=== PATIENT | female | born 1975 | race Caucasian/White ===

== ENCOUNTER → 2018-05-15 13:40 | Outpatient (CLI) | payer BC, SELFPAY ==
--- NOTE | 2018-05-15 13:40 | MRI_ITS ---
STUDY: MRI RIGHT ANKLE WITHOUT CONTRAST REASON FOR EXAM: Female, 43 years old. Pain. Sprain. TECHNIQUE: Standardized fat and water weighted pulse sequences were obtained in all 3 orthogonal planes. COMPARISON: None. FINDINGS: Normal subcutis adipose space. There is marrow edema with T2 signal hyperintensity at the neck and anterior talus. Normal posterior tibialis tendon. Normal flexor digitorum longus tendon. Normal flexor hallucis longus tendon. Normal peroneus longus and brevis tendons. Normal tibialis anterior tendon. Normal extensor hallucis longus tendon. Normal extensor digitorum longus tendons. Normal Achilles tendon and teno-osseous insertion. Normal plantar fascia. Normal plantar calcaneal tubercles. Normal intrinsic muscles of the rearfoot. Normal distal tibiofibular syndesmotic ligamentous complex. Normal lateral ligamentous complex. Normal subtalar ligaments and sinus tarsi. Normal deltoid ligamentous complexes. Normal plantar calcaneonavicular (spring) ligament. Normal tibiotalar articulation. Normal talar dome. Normal subtalar articulations. Normal talonavicular articulation. Normal calcaneocuboid articulation. Normal navicular-cuneiform articulations. MRI/Lower Ext Joint Only (Routine) IMPRESSION: Stress injury or bone bruising of the talus. Electronically Signed: Chris Bowen MD at 14:24 EDT , Service support ,
== END ==
PROVIDERS: Family Provider Family Medicine; PCP Family Medicine
DX: M25.571 Pain in right ankle and joints of right foot (principal); S93.491A Sprain of other ligament of right ankle, initial encounter
CPT/HCPCS: 73721

== ENCOUNTER → 2021-05-24 16:46 | Outpatient (CLI) | payer BC, SELFPAY ==
--- NOTE | 2021-05-24 16:55 | RAD_ITS ---
STUDY: X-RAY - RIGHT KNEE REASON FOR EXAM: Female, 46 years old. He pain for one month. No known injury. TECHNIQUE: 3 view(s) of the knee. COMPARISON: None. FINDINGS: Normal visualized distal femur. Normal visualized proximal tibia and fibula. Normal proximal tibiofibular articulation. There is no acute fracture, dislocation or destructive osseous pathology. Normal medial femorotibial compartment. Normal lateral femorotibial compartment. Normal patellofemoral articulation. There is no demonstrated joint effusion. The soft tissue structures are unremarkable. RAD/Knee 3 Views IMPRESSION: Normal x-ray examination of the knee. Electronically Signed: Joshua Nagel DO at 18:57 EDT Tel [phone], Service support ,
== END ==
DX: M25.561 Pain in right knee (principal)
CPT/HCPCS: 73562

== ENCOUNTER → 2022-07-12 | Outpatient (CLI) | payer BC, SELFPAY ==
--- NOTE | 2022-07-12 17:57 | CT_ITS ---
STUDY: CT ABDOMEN AND PELVIS WITH CONTRAST REASON FOR EXAM: Female, 47 years old. Right lower quadrant abdominal pain. RADIATION DOSAGE (If Supplied By Facility): CTDIvol = ( 11.12 ) mGy, DLP = ( 450.80 ) mGycm TECHNIQUE: Transaxial images were obtained from the dome of the diaphragm to the symphysis pubis with oral contrast. 100 mL of ISOVUE-300 was administered. Sagittal and coronal images were reconstructed. Individualized dose optimization techniques were used for this CT. COMPARISON: None. FINDINGS: The visualized lung bases are unremarkable. The visualized portions of the heart are within normal limits. Normal liver. Normal gallbladder and extrahepatic biliary system. Normal spleen. Normal pancreas. Normal bilateral adrenal glands. Portable scarring and decreased size of the right kidney with normal cortical enhancement. There is no mass or renal calculi. No hydronephrosis. Normal left kidney. Normal visualized ureters. Normal visualized stomach. Normal small intestine. Increased colonic feces suggesting constipation. There is no mass or obstruction. The appendix is visualized and appears normal. Normal abdominal aorta. Normal inferior vena cava. Normal retroperitoneum. Normal urinary bladder. Normal uterus and ovaries. There is no pelvic lymphadenopathy. No free air or free fluid is seen within the cavity. Normal abdominal wall. Normal osseous structures. CT/Abdomen/Pelvis WITH Contrast IMPRESSION: 1. Normal appendix. 2. Cortical scarring of the right kidney with no mass. There is no ureteral or urinary bladder abnormality. 3. Question constipation. Electronically Signed: Joshua Nagle DO at 22:09 EDT Reading Location ID and State: [facility] / [place] Tel [phone], Service support ,
== END | disposition home or self-care (01) ==
LOC: CT 17:54
DX: R10.31 Right lower quadrant pain (principal)
CPT/HCPCS: 74177; Q9967

== ENCOUNTER → 2023-05-01 | Outpatient (CLI) | payer BC, SELFPAY ==
--- NOTE | 2023-05-01 15:44 | MRI_ITS ---
PROCEDURE: LUMBAR SPINE MRI WITHOUT CONTRAST COMPARISONS: 09/25/2016; 07/12/2022 CT abdomen/pelvis CLINICAL INDICATION: LUMBAR STENOSIS WITH NEUROGENIC CLAUDICATION TECHNIQUE: Noncontrast lumbosacral spine MRI study was performed multiple sequences in sagittal and axial planes. FINDINGS: Alignment of the lumbosacral spine is normal. Normal vertebral marrow signal. Normal partially visualized sacroiliac joints. The conus medullaris terminates at L1. No abnormal signal within the visualized cord. L1-L2: Normal disc height and morphology. Normal spinal canal and neuroforamina. L2-L3: Normal disc height and morphology. Normal spinal canal and neuroforamina. L3-L4: Disc bulge with crowding of both traversing L4 nerve roots in both lateral recesses. Normal spinal canal and neuroforamina. L4-L5: Disc bulge with spinal canal stenosis and impingement on the left more than right traversing L5 nerve roots in the lateral recesses. Mild bilateral neural foraminal stenosis. L5-S1: Disc bulge. Mild bilateral neural foraminal stenosis. Mild paraspinous muscle fatty infiltration. MRI/Spine Lumbar (Routine) IMPRESSION: 1. Disc bulge with impingement on the left more than right traversing L5 nerve roots in the lateral recesses at L4-5. 2. Other medical lower lumbar spine degenerative change detailed above, including paraspinous muscle fatty infiltration. Electronically Signed: Daniel Jaramillo MD at 19:21 EDT ,
--- NOTE | 2023-05-01 16:44 | RAD_ITS ---
INDICATION: STENOSIS WITH CLAUDICATION EXAMINATION/TECHNIQUE: X-RAY - XR Spine Lumbar Min 4 Views COMPARISON: CT abdomen and pelvis 07/12/2022 FINDINGS: VERTEBRAE: Preserved vertebral body height. No fracture. No spondylolisthesis. Preservation of the normal lumbar lordosis. No evidence of instability with flexion and extension lateral views. DISCS: Stable degenerative disc space narrowing at L4-5 and L5-S1. INCLUDED ABDOMEN: Included bowel gas pattern is non-obstructive. RAD/L/S Spine Min 4 Views IMPRESSION: Stable degenerative disc disease lower lumbar spine. Electronically Signed: Stephane Carmona MD at 0:24 EDT ,
== END | disposition home or self-care (01) ==
PROVIDERS: Referring Provider Neurological Surgery; Visit Provider Neurological Surgery
DX: M48.062 Spinal stenosis, lumbar region with neurogenic claudication (principal)
CPT/HCPCS: 72110; 72148

== ENCOUNTER → 2024-07-01 | Outpatient (CLI) | payer BC, SELFPAY ==
--- NOTE | 2024-07-01 14:31 | BI_ITS ---
MAMMOGRAPHY - UNILATERAL DIAGNOSTIC: RIGHT BREAST REASON FOR EXAM: Female, 49 years old. Abnormal screening mammogram. PERTINENT HISTORY: Non-contributory. TECHNIQUE: Compression magnification views of the right breast were obtained. CAD: Full Field Digital Mammography with Computer Added Detection was performed. COMPARISON: Comparison is made with prior outside examination dated June 28, 2024. FINDINGS: Breast Composition: The breasts are heterogeneously dense, which may obscure small masses. Persistent cluster of microcalcification in the upper central aspect of the right breast. Biopsy recommended. No other significant abnormalities are identified. BI/DIAG MAMM W/CAD, UNILAT IMPRESSION: Persistent cluster microcalcification in the upper central aspect of the right breast. Biopsy recommended. ASSESSMENT CATEGORY: BIRADS Category 4: Suspicious - Biopsy Should Be Considered. A letter regarding these results will be sent to the patient by the facility within 30 days. Approximately 10% of breast cancers are not detected by mammography. A normal mammogram should not delay biopsy of a clinically suspicious abnormality. Electronically Signed: Alo Barnes MD at 8:55 EDT ,
== END | disposition home or self-care (01) ==
LOC: OPBI 14:30
PROVIDERS: Visit Provider Nurse Practitioner Family
DX: R92.0 Mammographic microcalcification found on diagnostic imaging of breast (principal)
CPT/HCPCS: 77065

== ENCOUNTER → 2024-07-15 | Outpatient (CLI) | payer BC, SELFPAY ==
--- NOTE | 2024-07-15 | IMM_PTH ---
PATIENT: FERNY ARANA LOC: [facility] U#:[id number] AGE/SX: 49/F ROOM: RE07/15/[address]: Dr. Manpreet Ye MD : 1975 BED: DIS: 07/15/2024 SPEC #: [id number] RECD: 07/16/24 10:25 STATUS: RAKESH REQ #: [id number] DANE: 07/15/24 00:[address]: Manpreet Ye DEPT: IMMUNOHISTOCHEMISTRY RECD BY: Kam Ch ENTERED: 07/16/24 10:26 SP TYPE: IMMUNO OTHR DR: CRIS JENNINGS, SALES PROPERTY MANAGER-C Jessica Olvera PA-C Tissues: Right breast, NOS Procedures: CALPONIN-1 (add) CK5-6 (add) CK8 (add) E-CAD (add) HER2 KRYSTAL (add) KI-67 (add) P53 (add) AZ (add) P40 (add) ER (initial) PHYSIC[facility] INSTIT[facility] [address] [address] SPECIMEN INFORMATION: Tissue Source: Right breast tissue Clinical Info: Right breast outer quadrant microcalcifications Specimen Number: [id number] CPT code: 70823,[id number] METHODOLOGY: Deparaffinized sections of prefer/formalin-fixed tissue or PAP/DQ stained slides are incubated with monoclonal/polyclonal antibodies/oligonucleotide probes. Localization is made via biotin free immunoperoxidase method. Appropriate controls are performed and reacted as expected. Results on target cell population are indicated in the following table: RESULTS: ANTIBODY / CLONE RESULT Block 1 P53 (DO-7) positive, wild type Ki-67 (30-9) positive, 15% CK8 (51onirD78) positive CK5-6 (D5 & 1684) positive, basal layer Calponin-1 (AP006U) positive P40 (BC28) positive E-Cad (ECH-6) positive MORPHOMETRIC ANALYSIS ER (clone 6F11) >95%, strong intensity AZ (clone 16/1E2) >95%, strong intensity Her-2Neu (clone CB11) 2-3+ The prognostic test for HER2 is performed on formalin-fixed paraffin embedded tissue. A 3+ (positive) staining pattern is defined as intense, homogeneous, complete, circumferential membranous staining in >10% of contiguous tumor cells. A similar weak (2+) staining pattern is interpreted as equivocal. SEVEN follow-up testing is recommended for all equivocal cases. Positivity/negativity for ER/AZ is reported if > or < 1% of the tumor cells are immuno- reactive, respectively. The ASCO/CAP criteria is used for scoring. Reference: Journal of Clinical Oncology, 2013; 31:6715-3151 & 2010; 16:5421-1488. Ischemic time: Less than one hour. Duration of fixation: 8 Hrs; Sample Adequate: Yes. These assays have not been validated on decalcified tissues. Results should be interpreted with caution given the likelihood of false negativity on decalcified specimens or fixation greater than 72 hours. Alternative testing methods (FISH/dualISH for Her2; gene expression for ER) are recommended, if applicable. Please notify the laboratory if additional testing is required. These tests were developed and their performance characteristics determined by [facility]. They may not have been cleared or approved by the U.S. Food and Drug Administration. The FDA has determined that such clearance or approval is not necessary. The above immunohistochemical/dualISH markers are ordered and reviewed by the Pathologist. 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 Positive for estrogen receptors (favorable prognostic indicator). Positive for progesterone receptors (favorable prognostic indicator). Positive for overexpression of GXE4ckg. AM/mr 07/19/2024
--- NOTE | 2024-07-15 11:30 | BRBX_PTH ---
PATIENT: FERNY ARANA LOC: [facility] U#:[id number] AGE/SX: 49/F ROOM: RE07/15/[address]: Dr. Manpreet Ye MD : 1975 BED: DIS: 07/15/2024 SPEC #: [id number] RECD: 07/15/24 12:19 STATUS: RAKESH REJulio Cesar #: [id number] DANE: 07/15/24 11:[address]: Manpreet Ye DEPT: SURGICAL PATHOLOGY RECD BY: Ryan Singh ENTERED: 07/15/24 13:50 SP TYPE: BREAST BX OTHR DR: CRIS JENNINGS, MARIEC Jessica Olvera PA-C Tissues: Right breast, NOS Procedures: Surgery Specimen Level IV HEADER OPERATION: Right stereotactic breast biopsy PRE-OP DIAGNOSIS: Right breast upper outer quadrant microcalcifications TISSUE SUBMITTED: Right breast core tissue Ischemic Time: 1 minute Fixation Time: 8 hours MICROSCOPIC DIAGNOSIS Right breast, upper outer quadrant, core biopsy: Ductal carcinoma in situ. See Comment. 07/16/2024 COMMENT IN SITU CANCER SUMMARY: Ductal Carcinoma Insitu: Architectural Pattern: Solid Nuclear Grade: 3/3 Comdeo necrosis: Present Angiolymphatic Invasion:Not identified Microcalcifications: Present Greatest length: 5.5mm The above summary is in compliance with [employer] [place] (CAP) Cancer Protocols Checklist and [place] Joint Committee on Cancer (AJCC), Staging Manual, 8th Ed. Immunohistochemistry ([id number]) supports the above diagnosis. Case has been reviewed in consultation with Dr. Solorzano who concurs with the above diagnosis. IDC:[id number] MICROSCOPIC DESCRIPTION Slides are reviewed. GROSS DESCRIPTION Received is one container labeled with the patient's name and not further designated. The specimen consists of multiple elongated fragments of moreno-yellow fibroadipose tissue that in aggregate measure 5.0 x 3.0 x 0.3 cm. The specimen is totally submitted in two cassettes. 07/15/2024 TC:0 CPT:25259
--- NOTE | 2024-07-15 11:49 | OP.PCM_ITS ---
Problems Associated Problem List Diagnoses (1) Abnormal mammogram of right breast: Report of Operation Date of Procedure: 07/15/24 Pre-Operative Diagnosis: Abnormal right breast mammogram/microcalcifications Post-Operative Diagnosis: Abnormal right breast mammogram/microcalcifications Surgery/Procedure Performed:: Stereotactic guided right breast core needle biopsy Surgeon: Manpreet Ye Type of Anesthesia: Local Specimen's removed: Right breast tissue containing microcalcifications Drains: None Estimated Blood Loss (mL): 3 mL Description of Procedure: The patient is a 49-year-old female who recently underwent screening mammography showing a new area of microcalcification in the right breast. Biopsy was recommended via a stereotactic biopsy. We discussed the details of the planned procedure including the risks benefits and alternatives. She wished to proceed. This was scheduled in a timely manner. She was brought to the women's breast imaging facility and patient was appropriately identified. The patient was then placed in a prone position on the stereotactic biopsy table. The right breast was suspended through the aperture and the table. The right breast was then placed into compression and pipeline maintenance supervisor views were obtained until the area of microcalcifications were clearly identified. Once these were appropriately identified, 2 stereotactic views were then obtained. Using these images, the lesion was targeted. Once this was performed the skin of the breast was prepped and draped in the usual sterile manner using Betadine. Local anesthetic was then injected into the vicinity. After local anesthetic was injected, an #11 blade was then used to make a 2 to 3 mm skin incision through which the biopsy probe was inserted and advanced to the desired depth. Next, the biopsy probe was fired and this was followed by another series of images to confirm appropriate placement in relation to the calcifications. This was clearly the case. Numerous suction biopsies were then obtained mostly from the 10 to 1 o'clock positions. Patient tolerated this well but we did inject some additional local anesthetic. The specimen tissue was then retrieved and a specimen radiograph was then performed. These images clearly showed many microcalcifications noted in several samples confirming accurate biopsying of the lesion in question. The biopsy site was then lavaged. A marking clip was then deployed. A post clip placement image was then obtai josi and clearly showed the marking clip in the appropriate position in relation to the biopsy cavity. The patient was then taken out of compression and manual pressure was then held for period of time on the area to minimize bruising and improve hemostasis. Overall hemostasis was excellent and only minimal blood loss was noted. The patient was then sat upright and then nursing staff was able to apply Steri-Strip dressing. She tolerated this procedure well. All questions and concerns were addressed following the procedure. An appointment was made for her to follow-up sometime next week in the office to discuss the final pathology results. Complications None Procedures Radiology Radiology US Procedures: Other Procedure See Report (Stereotactic guided right breast core needle biopsy)
== END | disposition home or self-care (01) ==
PROVIDERS: PCP Nurse Practitioner Family; Referring Provider Physician Assistant; Visit Provider Surgery
DX: D05.11 Intraductal carcinoma in situ of right breast (principal)
CPT/HCPCS: 19081; 88305; 88341; 88342; J7050; A4648

== ENCOUNTER 2024-07-26 11:20 | Day surgery (SDC) | payer BC, SELFPAY ==
[2024-07-26] VITALS (9 sets, daily range): BP systolic 117–132; BP diastolic 66–97; PULSE 44–70; RESP 12–18; TEMP 36.1–36.6; O2SAT 97–100; BMI 25.8
--- NOTE | 2024-07-26 11:10 | BI_ITS ---
SURGICAL BREAST SPECIMEN RADIOGRAPH CLINICAL: Document presence of tissue clip marker in biopsy specimen. FINDINGS: Specimen shows presence of tissue clip marker. Electronically Signed: Alo Barnes MD at 14:45 EDT , BI/Breast Biopsy Specimen IMPRESSION: undefined
[2024-07-26] MEDS: Lactated Ringers 1,000 ML 15 ML IV (11:30)
[2024-07-26 12:56] LABS: Internal QC Validated? YES +Cl - CLEAR BKGD; Pregnancy, Serum, hCG Quali. NEGATIVE Negative
--- NOTE | 2024-07-26 13:00 | BRBX_PTH ---
PATIENT: FERNY ARANA LOC: [facility] – [place] U#:[id number] AGE/SX: 49/F ROOM: RE07/26/[address]: Dr. Manpreet Ye MD : 1975 BED: DIS: 07/26/2024 SPEC #: [id number] RECD: 07/26/24 14:39 STATUS: RAKESH REJulio Cesar #: [id number] DANE: 07/26/24 13:[address]: Manpreet Ye DEPT: SURGICAL PATHOLOGY RECD BY: Ryan Singh ENTERED: 07/27/24 09:25 SP TYPE: BREAST BX OTHR DR: CLARE SPENCER Tissues: A - Right breast, NOS B - Right breast, NOS C - Right breast, NOS Procedures: Surgery Specimen Level IV HEADER OPERATION: Breast, lumpectomy with right stereo wire localization PRE-OP DIAGNOSIS: Neoplasm of right breast, primary tumor staging category Tis: Ductal carcinoma in situ DCIS TISSUE SUBMITTED: A- Right breast *long stitch- lateral, short stitch- superior*, B- Right breast: Additional inferior margin, C- Right breast: New additional lateral margin Ischemic Time: 9 minute Fixation Time: 29.5 hours MICROSCOPIC DIAGNOSIS A. Right breast, lumpectomy with needle localization: Negative for carcinoma. Changes consistent with previous biopsy site. B. Right breast, additional inferior margin: Focal ductal carcinoma in situ. See cancer summary in the comment section. C. Right breast, new additional lateral margin: Fatty benign breast tissue, negative for carcinoma. SJ. 07/29/2024 COMMENT B. BREAST CANCER SUMMARY (DCIS): Procedure - excision, lumpectomy with needle localization including additional inferior and lateral margins Specimen laterality - Right Tumor: Tumor site - Upper outer quadrant as per clinical information. Size (extent) of DCIS - 0.3 x 0.1cm Number of blocks with DCIS - 1 Number of blocks examined - 25 (specimen A, B &C) Architectural pattern - Comedo and solid Nuclear grade - grade 3 (high) Necrosis - present, central (expansive comedo necrosis) Margins: Margins are free of tumor. Presumed new margin is 0.5cm away from the tumor Regional lymph nodes: No lymph nodes are submitted or found Distal metastases- Not applicable Treatment effect - no known presurgical therapy. Additional Pathologic Findings - - Fibrocystic changes and intraductal hyperplasia without atypia - changes consistent with previous biopsy site. Ancillary Studies: Previously performed on same tumor ([id number] / [id number]) ER: positive (>95%, strong intensity) UT: positive (>95%, strong intensity) Bzi2ako: 2-3+ Microcalcifications - Present in DCIS Clinical History - Please make reference to previous specimen [id number] right breast, upper outer quadrant core biopsy with diagnosis of ductal carcinoma in situ. Radiologic findings- upper outer quadrant microcalcifications. PATHOLOGIC STAGE: pTis(DCIS) pNx pMx The above summary is in compliance with [employer] [place] [employer] (CAP) Cancer Protocols Checklist and [place] Joint Committee on Cancer (AJCC), Staging Manual, 8th Ed. MICROSCOPIC DESCRIPTION Slides are reviewed. GROSS DESCRIPTION A. Received fresh and post fixed in formalin is one container labeled with the patient's name and designated Right breast lumpectomy. The specimen consists of a piece of fibroadipose tissue with needle localization measuring 8.0 x 6.0 x 3.0cm. A piece of skin is also noted anteriorly measuring 2.5 x 0.6cm. The skin surface is unremarkable. The specimen is inked as follows: anterior - yellow, posterior - black, superior - blue, inferior - green, medial - red and lateral - orange. The specimen is partly disrupted. Serial sections reveal mostly adipose cut surfaces with scant fibrous areas. A focal hemorrhagic area close to the inferior margin is noted consistent with previous biopsy site. No obvious mass lesions are identified. This area measures 1.5cm in greatest dimension. Program Management Specialist sections are submitted in eleven cassettes as follows: 1-perpendicular anterior margin, skin and posterior margin, 2- perpendicular medial, lateral and superior margins, 3-11- biopsy cavity with adjacent area and including closest inferior margin. Sections area submitted after additional fixation. 07/27/2024 B. Received in fixative is one container labeled with the patient's name and designated Right breast, additional inferior margin. The specimen consists of an unoriented piece of fibroadipose tissue measuring 4.0 x 3.5 x 1.5cm. One surface is ragged and presumed to be old margin and the opposite surface is smooth. Presumed new margin is inked black and presumed old margin is inked blue. Sections reveal focal hemorrhagic cut surfaces. No obvious mass lesion is identified. The entire specimen is submitted in eight cassettes from one end to another end. Sections are submitted after additional fixation. 07/27/2024 C. Received in fixative is one container labeled with the patient's name and designated Right breast, new additional lateral margin. The specimen consists of an unoriented piece of fibroadipose tissue measuring 5.0 x 3.0 x 1.1cm. One surface shows focal area of hemorrhage presumed to be old margin and inked blue. Presumed new margin is inked black. Sections reveal yellow adipose cut surfaces with scant fibrous areas. Program Management Specialist sections are submitted in six cassettes. Sections will be submitted after additional fixation. 07/27/2024 TC:0 CPT:43409,24698w4
--- NOTE | 2024-07-26 13:21 | PCM.PRE.AN2 ---
ASA Classification* ASA Classification ASA Classification: 2 Assessment & Plan Anesthesia* Anesthesia Assessment Anesthesia Assessment: Discussed sedation and/or anesthesia options, risks, benefits, and alternatives with patient/parents/legal guardian/POA. Questions invited. The patient/parents/legal guardian/POA seems to understand and agrees to proceed with anesthesia plan. Reviewed the physical assessment, medical history, allergy history and patient home medications list prior to surgery/procedure/anesthetic and documented any changes. Performed airway and anesthesia risk assessments. 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 When Was Last Pacemaker Check QUESTION #4 FULL TEXT: You/Your Family Experience fever (hyperthermia) with Anesthesia Last Oral Intake Last Oral intake: Last Oral Intake NPO since 07:45 07/26/24 11:50 Meds taken in AM with sips of Yes 07/26/24 11:50 water? Meds patient instructed to take am of surgery Any additional information?: Yes NPO since: 07:45 (Patient took metoprolol at 745 today.) Meds taken in AM with sips of water?: Yes PONV PONV - receiving tank operator: PONV - receiving tank operator Female Yes 07/21/24 15:50 HX of Motion Sickness Yes 07/21/24 15:50 HX of N/V After Surgery Yes 07/21/24 15:50 Non-Smoker Yes 07/21/24 15:50 Duration of Surgery greater Yes 07/21/24 15:50 than 60 minutes Number of Risk Factors 5 07/21/24 15:50 PONV Score Severe Risk 07/21/24 15:50 Height & Weight Height & Weight: Anesthesia: Height & Weight Height 5 ft 8 in 07/26/24 11:50 Weight: 77 kg 07/26/24 11:50 Body Mass Index (BMI) 25.8 07/26/24 11:50 Respiratory Assessment Respiratory Assessment - receiving tank operator: Respiratory Tract Infection Hx - receiving tank operator Hx Respiratory Tract Infection No 07/21/24 15:50 STOP Sleep Apnea STOP Sleep Apnea - receiving tank operator: STOP Sleep Apnea - receiving tank operator Hx Hypertension No 07/21/24 15:50 Hx Sleep Apnea No 07/21/24 15:50 CPAP BIPAP Do you snore loudly (louder No 07/21/24 15:50 than talking or can be heard Do you often feel tired/ No 07/21/24 15:50 fatigued/ sleepy during daytime? Has anyone observed you stop No 07/21/24 15:50 breathing during sleep? STOP Results Negative 07/21/24 15:50 QUESTION #5 FULL TEXT : Do you snore loudly (louder than talking or can be heard through closed doors)? 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 Specify any problems Hx of Preganancy in last 3 No 07/21/24 15:50 Months Nurse Filling Out Transfusion VCHRISTIN 07/21/24 15:50 & Questions: Date: 07/21/24 07/21/24 15:50 Time: 15:52 07/21/24 15:50 Patient unable to answer at this time (ie. confused, unrespo /Reproduction History /Reproductive History - receiving tank operator: /Reproductive Hx- receiving tank operator Hx Now No 07/21/24 15:50 Gestational Age (in weeks): EDC: Hx Hx Para Hx Section SAB No 07/21/24 15:50 Active Medications Active Medications: Current Medications Generic Name Dose Route Start Last Admin Trade Name Freq PRN Reason Stop Dose Admin Lactated Ringer's 1,000 mls @ 15 mls/hr 07/26/24 11:30 07/26/24 11:30 IV 15 mls/hr .Q48H ANSELMO Administration PFSH Medical History Wears glasses Arthritis Injury of back Back pain Dietary restriction Gastric reflux Non-smoker History of echocardiogram Cardiology follow-up encounter History of irregular heartbeat Neoplasm of right breast, 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) Abnormal mammogram of right breast Home Medications ?Medication ?Instructions ?Recorded ?Last Taken ?Type metoprolol succinate 25 mg 25 mg PO QDAY 07/09/24 07/26/24 07:45 History tablet,extended release 24 hr omeprazole 20 mg capsule,delayed 20 mg PO QDAY 07/09/24 Unknown History release calcium carbonate 600 mg-vitamin 1 tab PO DAILY 07/21/24 Unknown History D3 5 mcg (200 unit) tablet (Calcium 600 + D(3)) multivitamin (Daily Multi-Vitamin 1 tab PO DAILY 07/21/24 Unknown History tablet) Allergy/AdvReac Type Severity Reaction Status Date / Time latex Allergy Mild Rash Verified 07/26/24 11:50 aspirin Allergy Rash Verified 07/26/24 11:50 Surgical History Hx of left knee surgery S/P breast biopsy, right H/O section Social History Smoking Status: Never smoker alcohol intake: never substance use type: does not use Review of Systems (Anesthesia) ROS Narrative System reviewed and no additional complaints, except as documented.
--- NOTE | 2024-07-26 13:32 | PCM.HP.STD ---
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) Abnormal mammogram of right breast Home Medications ?Medication ?Instructions ?Recorded ?Last Taken ?Type metoprolol succinate 25 mg 25 mg PO QDAY 07/09/24 07/26/24 07:45 History tablet,extended release 24 hr omeprazole 20 mg capsule,delayed 20 mg PO QDAY 07/09/24 Unknown History release calcium carbonate 600 mg-vitamin 1 tab PO DAILY 07/21/24 Unknown History D3 5 mcg (200 unit) tablet (Calcium 600 + D(3)) multivitamin (Daily Multi-Vitamin 1 tab PO DAILY 07/21/24 Unknown History tablet) Allergy/AdvReac Type Severity Reaction Status Date / Time latex Allergy Mild Rash Verified 07/26/24 11:50 aspirin Allergy Rash Verified 07/26/24 11:50 Surgical History Hx of left knee surgery S/P breast biopsy, right H/O section Social History Smoking Status: Never smoker alcohol intake: never substance use type: does not use Vital Signs Vital Signs Vital Signs: 07/26/24 11:50 07/26/24 11:50 07/26/24 13:29 Temperature 97.6 F L 97.6 F L Temperature Source Temporal Pulse Rate 59 L 59 L Respiratory Rate 16 16 Respiratory Pattern Normal Blood Pressure 132/91 H 132/91 H Blood Pressure Mean 104 Blood Pressure Source Monitor Blood Pressure Position Semi-Fowlers Blood Pressure Location Right Arm Pulse Ox 100 100 Oxygen Delivery Method Room Air Room Air Weight Weight: 169 lb 12.095 oz Body Mass Index (BMI) 25.8 Physical Exam Const alert, oriented x3 and no apparent distress General Appearance: cooperative and comfortable HEENT normocephalic Head and Scalp: normal to inspection Eyes PERRL Results Lab / Micro Data Labs: Laboratory Results - last 24 hr 07/26/24 12:10: Serum , Qual NEGATIVE Assessment & Plan Assessment/Plan (1) Neoplasm of right breast, 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
[2024-07-26] MEDS: Bupivacaine Mpf 0.5% 30 ML VIAL (13:56)
--- NOTE | 2024-07-26 15:18 | PCM.POST.ANE ---
Anesthesia: Postop Eval I Current Vital Signs Temperature: 97.7 F Pulse Rate: 66 Blood Pressure: 125/97 Respiratory Rate: 14 Pulse Ox: 97 Oxygen Delivery Method: Room Air Assessment Airway patent: Yes Spontaneous unlabored respirations: Yes Mental status: Awake and Calm nausea: No Vomiting: No Anesthesia Complication: No Fluid Hydration Crystalloid volume administer (ml): 900 Total IV fluid infused: 900 Progress Note Anesthesia document: Postop Eval 1 completed: Yes
--- NOTE | 2024-07-26 15:20 | DCINST_ITS ---
Discharge Instructions Diet Discharge Diet: Light diet - advance as tolerated Activity Discharge Activity: Return to Normal Activity Ice area for (Minutes): 30 Dressing / Incision Call your doctor if your incision/area has: Continuous Slow Oozing, Sudden Increased Bleeding, Increased Pain/ Swelling, Increased Redness, Foul Smelling Discharge and Swelling at the incision site Call your doctor if you observe: Fever of 101 or Higher Remove Dressing in: 1 day (remove kaity before 1st shower; skin glue will come off in 2 weeks ) Cleanse incision/area with: Soap & Water Follow Up Care Please Follow Up With: Manpreet Ye MD When: 1-2 weeks Test Results: Test results from this visit will be discussed in further detail at your follow- up appointment, if applicable. Pending Tests Upon Discharge: pathology Discharge Plan Admission Attending Provider: Manpreet Ye Primary Care Provider: CRIS JENNINGS Instructions Print Language: Albanian Discharge Orders/Prescriptions Prescriptions: New oxycodone-acetaminophen [Percocet] 5-325 mg tablet 1 tab PO Q8H PRN (Reason: pain) 5 Days Qty: 10 0RF Continued metoprolol succinate 25 mg tablet extended release 24 hr 25 mg PO QDAY omeprazole 20 mg capsule,delayed release(DR/EC) 20 mg PO QDAY multivitamin [Daily Multi-Vitamin] Tablet 1 tab PO DAILY calcium carbonate-vitamin D3 [Calcium 600 + D(3)] 600 mg-5 mcg (200 unit) tablet 1 tab PO DAILY Referrals / Follow Up: CRIS JENNINGS, BOARD OF EDUCATION SECRETARY-C [Primary Care Provider] - Disposition Disposition (needs filled in before D/C Order can be placed): Home, Self Care
--- NOTE | 2024-07-26 15:26 | OP.PCM_ITS ---
Report of Operation Date of Procedure: 07/26/24 Pre-Operative Diagnosis: Right breast DCIS Post-Operative Diagnosis: Right breast DCIS Surgery/Procedure Performed:: 1. Right breast wire localized partial mastectomy/lumpectomy 2. stereotactically placed wire for localization Surgeon: Manpreet Ye audiovisual aids technician: CARLOS PAULcase operator Type of Anesthesia: General Anesthesiologist: Michael Naidu Specimen's removed: 1. Right breast lumpectomy/partial mastectomy tissue 2. Additional inferior margin 3. Additional lateral margin Drains: None Estimated Blood Loss (mL): 20 mL Description of Procedure: The patient is a 49-year-old female who was recently diagnosed with right breast DCIS after having undergone screening mammography. There was an area of calcifications in the upper outer quadrant of the right breast. A stereotactic biopsy was performed and revealed DCIS. This was discussed in the office and we offered her wire localized lumpectomy and explained that she would likely need radiation therapy as well. We discussed the details of the planned procedure including risks benefits and alternatives. She wished to proceed. Surgery was scheduled in a timely manner. Once patient was admitted preoperatively, she was taken to breast imaging department for localization wire insertion. This was performed stereotactically with the patient in a prone position. The right breast was placed in CC compression. Images were obtained. Once the lesion was noted a stereotactic views were then obtained and this was used to target upon the abnormality. The area was prepped and draped in the usual manner. Local anesthetic was infiltrated. A hookwire was then inserted without difficulty. The needle was removed and the wire was clipped. Postprocedure mammogram showed the wire to be in appropriate position for surgery. Patient was then brought to the operating room again under informed consent. She was placed supine on the operative table with arms outstretched on arm boards. General LMA anesthesia was induced by the anesthesia department. Her arms were outstretched on arm boards. The right breast chest and axilla were prepped in the usual sterile manner. The area was draped in the usual standard manner as well. An ellipse incision was made around the entry point of the guidewire. Bovie electrocautery was then used to dissect down through the subcutaneous tissues parallel to the direction of the wire. Once dissection was carried beyond the tip of the wire the specimen was excised and was then sent to radiology to have a specimen radiograph performed. This clearly showed the wire as well as the clip. It appeared that the clip may be towards the edge of the specimen. To ensure negative margins, I excised additional tissue inferiorly as well as laterally as I felt this was most likely the area that might be close and margin. Hemostasis was excellent. The wound was copiously irrigated. The specimen was oriented with marking sutures. A long stitch kerns the lateral aspect of the specimen. A short stitch kerns the superior aspect of the specimen. The wound was then closed with 3-0 Vicryl and then 5-0 Vicryl. Skin glue was applied as dressing along with 4 x 4 gauze and tape. She was awakened by anesthesia and taken the PACU in good condition. Grafts/Implants Used: None Complications None Admit VTE Documentation VTE Present on Admission: No VTE Mechan Device Prophylaxis: SCD's VTE Pharm Prophylaxis ordered?: No Reason prophylaxis not ordered:: Treatment Not Indicated Procedures Hospitalists Procedures: Other Procedure - See Report ([id number] & [id number]) Procedures Integumentary [id number]-[id number]: 30404 Partial mastectomy Multi Select Codes Integumentary Integumentary CPT Codes: 44213 Perq dev breast 1st [place]ct[place] [address] Partial mastectomy
--- NOTE | 2024-07-26 16:08 | POSTOPAN2_ITS ---
Anesthesia Postop Eval I Sum Postop Eval Completion status Anesthesia document: Postop Eval 1 completed: Yes Anesthesia Postop Eval I Summary Anesthesia Postop Eval I Summary: Anesthesia Postop Eval I: Assessment Summary Airway patent Yes 07/26/24 15:18 NUCLEAR MEDICAL TECH.MDOT Spontaneous unlabored Yes 07/26/24 15:18 NUCLEAR MEDICAL TECH.MDOT respirations Mental status Awake,Calm 07/26/24 15:18 NUCLEAR MEDICAL TECH.MDOT nausea No 07/26/24 15:18 NUCLEAR MEDICAL TECH.MDOT Vomiting No 07/26/24 15:18 NUCLEAR MEDICAL TECH.MDOT Anesthesia Postop Eval I: Fluid Summary Crystalloid volume administer 900 07/26/24 15:18 NUCLEAR MEDICAL TECH.MDOT (ml) Colloids volume administered ( ml) Blood Product volume administered (ml) Total IV fluid infused 900 07/26/24 15:18 NUCLEAR MEDICAL TECH.MDOT Anesthesia Postop Eval I: Summary Notes Anesthesia Complication No 07/26/24 15:18 NUCLEAR MEDICAL TECH.MDOT Anesthesia Complication Comment: Post-operative progress note Anesthesia: Postop Eval II Evaluation Mental status: Awake and Calm Pain Level: 1 nausea: No Vomiting: No Complications Anesthesia Complication: No
--- NOTE | 2024-07-26 16:08 | PCM.POSTANE2 ---
Anesthesia Postop Eval I Sum Postop Eval Completion status Anesthesia document: Postop Eval 1 completed: Yes Anesthesia Postop Eval I Summary Anesthesia Postop Eval I Summary: Anesthesia Postop Eval I: Assessment Summary Airway patent Yes 07/26/24 15:18 EMBROIDERY ASSISTANT.MDOT Spontaneous unlabored Yes 07/26/24 15:18 EMBROIDERY ASSISTANT.MDOT respirations Mental status Awake,Calm 07/26/24 15:18 EMBROIDERY ASSISTANT.MDOT nausea No 07/26/24 15:18 EMBROIDERY ASSISTANT.MDOT Vomiting No 07/26/24 15:18 EMBROIDERY ASSISTANT.MDOT Anesthesia Postop Eval I: Fluid Summary Crystalloid volume administer 900 07/26/24 15:18 EMBROIDERY ASSISTANT.MDOT (ml) Colloids volume administered ( ml) Blood Product volume administered (ml) Total IV fluid infused 900 07/26/24 15:18 EMBROIDERY ASSISTANT.MDOT Anesthesia Postop Eval I: Summary Notes Anesthesia Complication No 07/26/24 15:18 EMBROIDERY ASSISTANT.MDOT Anesthesia Complication Comment: Post-operative progress note Anesthesia: Postop Eval II Evaluation Mental status: Awake and Calm Pain Level: 1 nausea: No Vomiting: No Complications Anesthesia Complication: No
== END 2024-07-26 18:24 | disposition home or self-care (01) ==
LOC: SDC 11:22 → AC 11:24
PROVIDERS: Anesthesiology; PCP Nurse Practitioner Family; Referring Provider Surgery; Visit Provider Surgery
PROC: (CPT 19083; principal; 2024-07-26 12:45)
DX: D05.11 Intraductal carcinoma in situ of right breast (principal); K21.9 Gastro-esophageal reflux disease without esophagitis; M19.90 Unspecified osteoarthritis, unspecified site; Z88.6 Allergy status to analgesic agent; Z91.040 Latex allergy status
CPT/HCPCS: 19301; 19283; 00404; 19281; 76098; 84703; 88305; A4648; J7120; J2405

== ENCOUNTER → 2024-11-17 | Outpatient (CLI) | payer BC, SELFPAY ==
--- NOTE | 2024-11-17 06:42 | MRI_ITS ---
EXAM: MR LUMBAR SPINE WITHOUT INTRAVENOUS CONTRAST CLINICAL INDICATION: LOW BACK Pain INTO BILATERAL LEGS TECHNIQUE: Multiplanar and multisequence MR images of the lumbar spine without intravenous contrast. COMPARISON: MRI lumbar spine, 05/01/2023 and lumbar spine radiographs, 10/12/2024. FINDINGS: VERTEBRAE: No significant abnormality. Minimal endplate degenerative changes particularly at L4-L5. Vertebral body heights are preserved. Normal vertebral bodies and posterior elements. Normal alignment. No spondylolisthesis. There is preservation of the normal lumbar lordosis. SPINAL CORD: No significant abnormality. Normal position and signal intensity of the conus medullaris. SOFT TISSUES: No significant abnormality. DISCS/SPINAL CANAL/NEURAL FORAMINA: L1-L2: Mild bilateral facet arthrosis. No disc herniation, spinal canal stenosis, or neural foraminal narrowing. L2-L3: Mild bilateral facet arthrosis. No disc herniation, spinal canal stenosis, or neural foraminal narrowing. L3-L4: Mild disc bulge and left foraminal to extraforaminal disc herniation. Mild bilateral facet arthrosis. Very mild spinal canal stenosis and mild left greater than right neural foraminal narrowing. L4-L5: Disc height loss and disc desiccation. Central disc extrusion superimposed upon a disc bulge increased in size since prior examination. Moderate facet arthrosis bilaterally. Severe spinal canal stenosis and moderate bilateral neural foraminal narrowing. Impingement of the bilateral traversing L5 nerve roots with crowding of the intrathecal nerve roots. L5-S1: Disc bulge with superimposed small central disc herniation and moderate bilateral facet arthrosis. Mild spinal canal stenosis and mild bilateral neural foraminal narrowing. Nerve root impingement. MRI/Spine Lumbar (Routine) IMPRESSION: Degenerative changes particularly at L4-L5 have progressed since prior examination. Previously demonstrated disc herniation has increased in size with impingement of the bilateral traversing L5 nerve roots. Electronically Signed: Hardik Vuong DO at 20:43 EST ,
== END | disposition home or self-care (01) ==
PROVIDERS: PCP Nurse Practitioner Family; Referring Provider Orthopaedic Surgery Orthopaedic Surgery of the Spine; Visit Provider Orthopaedic Surgery Orthopaedic Surgery of the Spine
DX: M54.16 Radiculopathy, lumbar region (principal); C50.919 Malignant neoplasm of unspecified site of unspecified female breast

== ENCOUNTER 2024-11-19 08:10 | Day surgery (SDC) | payer BC, SELFPAY ==
[2024-11-19] VITALS (8 sets, daily range): BP systolic 90–130; BP diastolic 41–76; PULSE 52–76; RESP 14–16; TEMP 36.3–36.7; O2SAT 95–100; BMI 24.8
--- NOTE | 2024-11-19 08:41 | PCM.HP.STD ---
HPI - General General Date of Admission: 12/08/24 Date of Service: 11/19/24 Chief Complaint: Chronic reflux HPI Narrative FERNY ARANA, is a 49 F who presents today for elective EGD. She has a history of chronic GERD. She is on PPI therapy. She has been noticing some increasing heartburn type symptoms. 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) Abnormal mammogram of right breast Home Medications ?Medication ?Instructions ?Recorded ?Last Taken ?Type metoprolol succinate 25 mg 25 mg PO QDAY 07/09/24 11/19/24 History tablet,extended release 24 hr calcium 600 mg (as 1 tab PO DAILY 07/21/24 11/18/24 History carbonate)-vitamin D3 5 mcg (200 unit) tablet (Calcium 600 + D(3)) multivitamin (Daily Multi-Vitamin 1 tab PO DAILY 07/21/24 11/18/24 History tablet) tamoxifen 20 mg tablet 20 mg PO QDAY #90 tabs 10/06/24 11/19/24 Rx Allergy/AdvReac Type Severity Reaction Status Date / Time latex Allergy Mild Rash Verified 11/19/24 08:32 aspirin Allergy Rash Verified 11/19/24 08:32 Family History Other Diabetes Heart disease Skin cancer Surgical History S/P lumpectomy, right breast Hx of left knee surgery S/P breast biopsy, right H/O section Social History Smoking Status: Never smoker alcohol intake: never substance use type: does not use ROS Constitutional Constitutional: Reports systems reviewed and no addt'l complaints, except as documented Eyes Eyes: Reports systems reviewed and no addt'l complaints, except as documented ENT HEENT: Reports systems reviewed and no addt'l complaints, except as documented Cardiovascular Cardiovascular: Reports systems reviewed and no addt'l complaints, except as documented Respiratory/Chest Respiratory/Chest: Reports systems reviewed and no addt'l complaints, except as documented Gastrointestinal Gastrointestinal: Reports systems reviewed and no addt'l complaints, except as documented Vital Signs Vital Signs Vital Signs: 11/19/24 08:32 11/19/24 08:32 Temperature 98.0 F Temperature Source Temporal Pulse Rate 76 Respiratory Rate 16 Respiratory Pattern Normal Blood Pressure 130/76 H Blood Pressure Mean 94 Blood Pressure Source Monitor Blood Pressure Position Semi-Fowlers Blood Pressure Location Right Arm Pulse Ox 100 Oxygen Delivery Method Room Air Weight Weight: 163 lb 9.6 oz Body Mass Index (BMI) 24.8 Physical Exam Const alert, oriented x3 and no apparent distress Assessment & Plan Assessment/Plan (1) GERD (gastroesophageal reflux disease): QUALIFIERS: Esophagitis presence: esophagitis presence not specified Qualified Code(s): K21.9 - Gastro-esophageal reflux disease without esophagitis PLAN: Plan The patient is a 49-year-old female with a history of GERD. She is to undergo EGD today. We discussed the details of the planned procedure including the risks benefits and alternatives. She wishes to proceed. This will begin momentarily. Charges/Coding Visit Charges Inpatient E&M: 35807 Init Hosp L1
--- NOTE | 2024-11-19 08:41 | PCM.PRE.AN2 ---
ASA Classification* ASA Classification ASA Classification: 2 Assessment & Plan Anesthesia* Anesthesia Assessment Anesthesia Assessment: Discussed sedation and/or anesthesia options, risks, benefits, and alternatives with patient/parents/legal guardian/POA. Questions invited. The patient/parents/legal guardian/POA seems to understand and agrees to proceed with anesthesia plan. Reviewed the physical assessment, medical history, allergy history and patient home medications list prior to surgery/procedure/anesthetic and documented any changes. Performed airway and anesthesia risk assessments. Anesthesia Type Anesthesia Type: MAC History Source History Obtained from:: Patient and Chart Anesthesia Focused Assessment* Temperature: 98.0 F Pulse Rate: 76 Blood Pressure: 130/76 Respiratory Rate: 16 Pulse Ox: 100 Oxygen Delivery Method: Room Air Airway Assessment Mouth opens: >3 cm Mallampati Score: II Teeth Condition: Intact Neck Range of motion (ROM): Full ROM Focused Labs Anesthesia Preop lab: CBC WBC 6.9 K/mm3 (4.4-11.0) 08/04/24 11:05 RBC 4.62 M/mm3 (4.2-5.4) 08/04/24 11:05 Hgb 13.9 g/dL (12.0-15.0) 08/04/24 11:05 Hct 41.6 % (37-47) 08/04/24 11:05 Plt Count 316 K/mm3 (150-450) 08/04/24 11:05 CHEMISTRY Potassium 3.8 mmol/L (3.5-5.1) 08/04/24 11:05 Sodium 138 mmol/L (136-145) 08/04/24 11:05 BUN 9 mg/dL (7-18) 08/04/24 11:05 Creatinine 0.87 mg/dL (0.55-1.02) 08/04/24 11:05 Glucose 107 mg/dL (74-106) H 08/04/24 11:05 COAG Pre-Assessment Diagnosis/Proposed Procedure Planned Operative Procedure(s): EGD Anesthesia History 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 When Was Last Pacemaker Check QUESTION #4 FULL TEXT: You/Your Family Experience fever (hyperthermia) with Anesthesia Last Oral Intake Last Oral intake: Last Oral Intake NPO since 00:00 11/19/24 08:32 Meds taken in AM with sips of No 11/19/24 08:32 water? Meds patient instructed to take am of surgery PONV PONV - polishing wheel repairer: PONV - polishing wheel repairer Female Yes 11/17/24 10:47 HX of Motion Sickness Yes 11/17/24 10:47 HX of N/V After Surgery Yes 11/17/24 10:47 Non-Smoker Yes 11/17/24 10:47 Duration of Surgery greater No 11/17/24 10:47 than 60 minutes Number of Risk Factors 4 11/17/24 10:47 PONV Score Severe Risk 11/17/24 10:47 Height & Weight Height & Weight: Anesthesia: Height & Weight Height 5 ft 8 in 11/19/24 08:32 Weight: 74.208 kg 11/19/24 08:32 Body Mass Index (BMI) 24.8 11/19/24 08:32 Respiratory Assessment Respiratory Assessment - polishing wheel repairer: Respiratory Tract Infection Hx - polishing wheel repairer Hx Respiratory Tract Infection No 11/17/24 10:47 STOP Sleep Apnea STOP Sleep Apnea - polishing wheel repairer: STOP Sleep Apnea - polishing wheel repairer Hx Hypertension No 11/17/24 10:47 Hx Sleep Apnea No 11/17/24 10:47 CPAP BIPAP Do you snore loudly (louder No 11/17/24 10:47 than talking or can be heard Do you often feel tired/ No 11/17/24 10:47 fatigued/ sleepy during daytime? Has anyone observed you stop No 11/17/24 10:47 breathing during sleep? STOP Results Negative 11/17/24 10:47 QUESTION #5 FULL TEXT : Do you snore loudly (louder than talking or can be heard through closed doors)? 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 Specify any problems Hx of Preganancy in last 3 No 11/17/24 10:47 Months Nurse Filling Out Transfusion VCHRISTIN 11/17/24 10:47 & Questions: Date: 11/17/24 11/17/24 10:47 Time: 10:49 11/17/24 10:47 Patient unable to answer at this time (ie. 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) Abnormal mammogram of right breast Home Medications ?Medication ?Instructions ?Recorded ?Last Taken ?Type metoprolol succinate 25 mg 25 mg PO QDAY 07/09/24 11/19/24 History tablet,extended release 24 hr calcium 600 mg (as 1 tab PO DAILY 07/21/24 11/18/24 History carbonate)-vitamin D3 5 mcg (200 unit) tablet (Calcium 600 + D(3)) multivitamin (Daily Multi-Vitamin 1 tab PO DAILY 07/21/24 11/18/24 History tablet) tamoxifen 20 mg tablet 20 mg PO QDAY #90 tabs 10/06/24 11/19/24 Rx Allergy/AdvReac Type Severity Reaction Status Date / Time latex Allergy Mild Rash Verified 11/19/24 08:32 aspirin Allergy Rash Verified 11/19/24 08:32 Family History Other Diabetes Heart disease Skin cancer Surgical History S/P lumpectomy, right breast Hx of left knee surgery S/P breast biopsy, right H/O section Social History Smoking Status: Never smoker alcohol intake: never substance use type: does not use Review of Systems (Anesthesia) ROS Narrative System reviewed and no additional complaints, except as documented.
--- NOTE | 2024-11-19 09:00 | IMM_PTH ---
PATIENT: FERNY ARANA LOC: EN U#:[id number] AGE/SX: 49/F ROOM: RE11/19/[address]: Dr. Manpreet Ye MD : 1975 BED: DIS: 11/19/2024 SPEC #: [id number] RECD: 11/19/24 14:39 STATUS: RAKESH REJulio Cesar #: [id number] DANE: 11/19/24 09:[address]: Manpreet Ye DEPT: IMMUNOHISTOCHEMISTRY RECD BY: Kam Ch ENTERED: 11/19/24 14:39 SP TYPE: IMMUNO OTHR DR: CLARE SPENCER Tissues: A - Gastric mucous membrane Procedures: H Pylori (initial) PHYSICIAN & INSTITUTION [place] [id number] SPECIMEN INFORMATION: Tissue Source: A- Antral biopsy Clinical Info: GERD Specimen Number: [id number] CPT code: 89097 METHODOLOGY: Deparaffinized sections of prefer/formalin-fixed tissue or PAP/DQ stained slides are incubated with monoclonal/polyclonal antibodies/oligonucleotide probes. Localization is made via biotin free immunoperoxidase method. Appropriate controls are performed and reacted as expected. Results on target cell population are indicated in the following table: RESULTS: ANTIBODY / CLONE RESULT Block A H Pylori (polyclonal) negative These tests were developed and their performance characteristics determined by [facility]. They may not have been cleared or approved by the U.S. Food and Drug Administration. The FDA has determined that such clearance or approval is not necessary. The above immunohistochemical/dualISH markers are ordered and reviewed by the Pathologist. INTERPRETATION: A. Antrum, biopsy: Negative for Helicobacter pylori organisms. 11/22/2024
--- NOTE | 2024-11-19 09:00 | EGD_PTH ---
PATIENT: FERNY ARANA LOC: EN U#:[id number] AGE/SX: 49/F ROOM: RE11/19/[address]: Dr. Manpreet Ye MD : 1975 BED: DIS: 11/19/2024 SPEC #: [id number] RECD: 11/19/24 13:55 STATUS: RAKESH HERMELINDO #: [id number] DANE: 11/19/24 09:[address]: Manpreet Ye DEPT: SURGICAL PATHOLOGY RECD BY: Ryan Singh ENTERED: 11/19/24 14:27 SP TYPE: EGD BIOPSY OT DR: CLARE SPENCER Tissues: A - Gastric mucous membrane B - Gastric mucous membrane Procedures: Special Stain Group I Surgery Specimen Level IV Alcian Blue/PAS (control) HEADER OPERATION: EGD with biopsy PRE-OP DIAGNOSIS: GERD TISSUE SUBMITTED: A- Antral biopsy, B- Gastroesophageal junction biopsy MICROSCOPIC DIAGNOSIS A. Antral biopsy: Gastric mucosa with mild focal chronic inflammation and focal intestinal metaplasia. See comment. B. Gastroesophageal junction, biopsy: Fragments of squamous mucosa with no significant pathologic findings. No glandular mucosa is present for evaluation. Negative for intestinal metaplasia / Herrera's esophagus. Negative for dysplasia. Negative for eosinophilic esophagitis. See comment. PW. 11/22/2024 COMMENT A. The results of immunohistochemistry for Helicobacter pylori will be reported separately ([id number]). B. Alcian blue/PAS stain with matched control is used in the evaluation of the specimen showing no goblet cells and therefore no evidence of intestinal metaplasia / Herrera's esophagus. MICROSCOPIC DESCRIPTION Slides are reviewed. GROSS DESCRIPTION A. Received in fixative is one container labeled with the patient's name and designated Antral biopsy. The specimen consists of one irregular fragment of light moreno soft tissue that measures 0.6 x 0.4 x 0.2 cm. The specimen is totally submitted in one cassette. B. Received in fixative is one container labeled with the patient's name and designated GE junction biopsy. The specimen consists of one irregular fragment of light moreno soft tissue that measures 0.4 x 0.3 x 0.1 cm. The specimen is totally submitted in one cassette. 11/19/2024 TC:3 CPT:66404h2,16563
--- NOTE | 2024-11-19 09:52 | OP.CCLET_ITS ---
11/19/2024 Lis Williamson Re : Upper GI endoscopy procedure for Ivet Heck Zurdo This procedure was performed on Tuesday, November 19, 2024. My impressions and recommendations are as follows: Impressions : - Normal duodenal bulb. - Normal stomach. Biopsied. - Normal esophagus. Biopsied. - The examination was otherwise normal. Recommendations : - Discharge patient to home (ambulatory). - High fiber diet. - Await pathology results. - Continue present medications. My findings are described in the full procedure note, which is enclosed. If I can be of further assistance, please feel free to contact me at . Sincerely, Manpreet Ye MD 11/19/2024 9:51:50 AM This report has been signed electronically.
--- NOTE | 2024-11-19 09:52 | OP.EGD_ITS ---
Patient Name: Ivet Combs Procedure Date: 11/19/2024 9:25 AM Date of : 1975 Age: 49 Procedure: Upper GI endoscopy Indications: Follow-up of gastro-esophageal reflux disease Providers: Manpreet Ye MD Referring MD: Manpreet Ye MD Medicines: Propofol per Anesthesia Patient Profile: Refer to note in patient chart for documentation of history and physical. Patient has symptoms of chronic dyspepsia. Patient has symptoms of chronic dyspepsia. Complications: No immediate complications. Estimated blood loss: Minimal. Procedure: Pre-Anesthesia Assessment: - Prior to the procedure, a History and Physical was performed, and patient medications and allergies were reviewed. The patient's tolerance of previous anesthesia was also reviewed. The risks and benefits of the procedure and the sedation options and risks were discussed with the patient. All questions were answered, and informed consent was obtained. Prior Anticoagulants: The patient has taken no anticoagulant or antiplatelet agents. ASA Grade Assessment: II - A patient with mild systemic disease. After reviewing the risks and benefits, the patient was deemed in satisfactory condition to undergo the procedure. After obtaining informed consent, the endoscope was passed under direct vision. Throughout the procedure, the patient's blood pressure, pulse, and oxygen saturations were monitored continuously. The Endoscope was introduced through the mouth, and advanced to the duodenal bulb. The upper GI endoscopy was accomplished without difficulty. The patient tolerated the procedure well. Moderate Sedation: See the other procedure note for documentation of moderate sedation with intraservice time. Scope In: 9:35:39 AM Scope Out: 9:44:12 AM Total Procedure Duration Time 0 hours 8 minutes 33 seconds Findings: The duodenal bulb was normal. The entire examined stomach was normal. Biopsies were taken with a cold forceps for Helicobacter pylori testing. Verification of patient identification for the specimen was done by the nurse using the patient's name, date and medical record number. Estimated blood loss was minimal. The examined esophagus was normal. Mucosa was biopsied with a cold forceps for histology randomly at the gastroesophageal junction. Verification of patient identification for the specimen was done by the nurse using the patient's name, date and medical record number. Estimated blood loss was minimal. The exam was otherwise without abnormality. Impression: - Normal duodenal bulb. - Normal stomach. Biopsied. - Normal esophagus. Biopsied. - The examination was otherwise normal. Recommendation: - Discharge patient to home (ambulatory). - High fiber diet. - Await pathology results. - Continue present medications. Procedure Code(s): --- Professional --- 72541, Esophagogastroduodenoscopy, flexible, transoral; with biopsy, single or multiple Diagnosis Code(s): --- Professional --- K21.9, Gastro-esophageal reflux disease without esophagitis CPT copyright 2021 [employer]. All rights reserved. The codes documented in this report are preliminary and upon mechanical shop laborer review may be revised to meet current compliance requirements. Manpreet Ye MD 11/19/2024 9:51:50 AM This report has been signed electronically. Number of Addenda: 0 Note Initiated On: 11/19/2024 9:25 AM
--- NOTE | 2024-11-19 09:57 | PCM.POST.ANE ---
Anesthesia: Postop Eval I Current Vital Signs Temperature: 97.3 F Pulse Rate: 57 Blood Pressure: 90/47 Respiratory Rate: 16 Pulse Ox: 95 Oxygen Delivery Method: Room Air Assessment Airway patent: Yes Spontaneous unlabored respirations: Yes Mental status: Asleep nausea: No Vomiting: No Anesthesia Complication: No Fluid Hydration Crystalloid volume administer (ml): 40 Total IV fluid infused: 40 Progress Note Anesthesia document: Postop Eval 1 completed: Yes
--- NOTE | 2024-11-19 12:32 | PCM.POSTANE2 ---
Anesthesia Postop Eval I Sum Postop Eval Completion status Anesthesia document: Postop Eval 1 completed: Yes Anesthesia Postop Eval I Summary Anesthesia Postop Eval I Summary: Anesthesia Postop Eval I: Assessment Summary Airway patent Yes 11/19/24 09:58 [email or web address] Spontaneous unlabored Yes 11/19/24 09:58 [email or web address] respirations Mental status Asleep 11/19/24 09:58 [email or web address] nausea No 11/19/24 09:58 [email or web address] Vomiting No 11/19/24 09:58 [email or web address] Anesthesia Postop Eval I: Fluid Summary Crystalloid volume administer 40 11/19/24 09:58 [email or web address] (ml) Colloids volume administered ( ml) Blood Product volume administered (ml) Total IV fluid infused 40 11/19/24 09:58 [email or web address] Anesthesia Postop Eval I: Summary Notes Anesthesia Complication No 11/19/24 09:58 [email or web address] Anesthesia Complication Comment: Post-operative progress note Anesthesia: Postop Eval II Evaluation Mental status: Awake and Calm Pain Level: 0 nausea: No Vomiting: No Complications Anesthesia Complication: No
== END 2024-11-19 10:45 | disposition home or self-care (01) ==
LOC: EN 08:10 → AC 08:12
PROVIDERS: PCP Nurse Practitioner Family; Referring Provider Surgery; Visit Provider Surgery
PROC: 0DJ08ZZ Inspection of Upper Intestinal Tract, Via Natural or Artificial Opening Endoscopic (ICD-10-PCS; CPT 43235; principal; 2024-11-19 08:55)
DX: K29.50 Unspecified chronic gastritis without bleeding (principal); K21.9 Gastro-esophageal reflux disease without esophagitis
CPT/HCPCS: 43239; 88305; 88312; 88342; A4216; J2405

== ENCOUNTER → 2025-03-17 | Outpatient (CLI) | payer BC, SELFPAY ==
--- NOTE | 2025-03-17 11:43 | VDLE_ITS ---
Reason For Study Reason For Study: Bilateral leg pain RIGHT LEFT GSV is normal. GSV is normal. CFV is compressible, spontaneous, phasic, competent CFV is compressible, spontaneous, phasic, competent, and demonstrates normal augmentation. and demonstrates normal augmentation. FV is compressible, spontaneous, phasic, competent FV is compressible, spontaneous, phasic, competent and demonstrates normal augmentation. and demonstrates normal augmentation. POP V is compressible, spontaneous, phasic, competent POP V is compressible, spontaneous, phasic, competent and demonstrates normal augmentation. and demonstrates normal augmentation. T/P Trunk is compressible. T/P Trunk is compressible. PTV is compressible. PTV is compressible. RT PerV is compressible. LT PerV is compressible. Minimal thrombus filled varicose vein noted at the lateral distal thigh. Procedure This is a venous duplex using B-mode, color flow and spectral Doppler. Exam performed in department. A preliminary report was called and/or faxed to [facility]ON[facility]ALE[facility]. VL/Venous Duplex US - Carl Extrem Interpretation Summary Deep veins of the bilateral lower extremities are patent and compressible segme ntally. There is no evidence of bilateral lower extremity deep vein thrombosis. The bilateral great saphenous veins appea r patent and compressible segmentally. Thrombus filled varicose vein noted at the right lateral distal thigh Ordering Physician: Alexandria Walker Referring Physician: Sherry Renner Performed By: Anay Bhat RVT
== END | disposition home or self-care (01) ==
LOC: CVS 11:43
PROVIDERS: PCP Nurse Practitioner Family; Referring Provider Nurse Practitioner Family; Visit Provider Nurse Practitioner Family
DX: M79.661 Pain in right lower leg (principal); M79.662 Pain in left lower leg; Z91.89 Other specified personal risk factors, not elsewhere classified
CPT/HCPCS: 93970

== ENCOUNTER → 2025-07-05 | Outpatient (CLI) | payer BC, SELFPAY ==
--- NOTE | 2025-07-05 07:56 | BI_ITS ---
EXAM: SCRN MAMM (CAD)W/BRICE BILAT DATE: 07/05/2025 CLINICAL HISTORY: F, Age 50 y/o , SCREENING Personal history of breast cancer. Prior lumpectomy in the right breast. TECHNIQUE: Procedure Code: [id number] Modality: MG Procedure: SCRN MAMM (CAD)W/BRICE BILAT COMPARISON: Prior exam(s) dated outside examination dated June 28, 2024 in July 01, 2024. FINDINGS: TISSUE DENSITY: There are scattered areas of fibroglandular density. Bilateral Breast Mammographic Findings: No significant masses, calcifications or other abnormalities are identified. The patient is status post lumpectomy in the deep upper lateral aspect of the right breast with resultant postoperative scarring and breast deformity. No suspicious masses, areas of developing architectural distortion, or suspicious calcifications. There has been no significant interval change. BI/SCRN MAMM (CAD)W/BRICE BILAT IMPRESSION: Status post lumpectomy in the deep upper lateral aspect of the right breast. OVERALL FINAL ASSESSMENT BI-RADS 2: BENIGN RECOMMENDATION: Routine annual follow-up in 1 Year A letter with findings and recommendations will be mailed to the patient. Reading Location: [place] [id number]
== END | disposition home or self-care (01) ==
PROVIDERS: PCP Nurse Practitioner Family; Referring Provider Internal Medicine Hematology & Oncology; Visit Provider Internal Medicine Hematology & Oncology
DX: Z12.31 Encounter for screening mammogram for malignant neoplasm of breast (principal); Z85.3 Personal history of malignant neoplasm of breast
CPT/HCPCS: 77063; 77067